=== PATIENT | female | born 1995 | race Caucasian/White ===

== ENCOUNTER 2018-06-03 09:21 | Emergency (ER) | payer BC ==
[~2018-06-03] VITALS: Ht 170.2 cm; Wt 56.2 kg
[2018-06-03 09:25] VITALS: Ht 170.2 cm; Wt 56.2 kg
[2018-06-03 10:24] LABS: BASOPHIL % 0.3 % (0-2); PLATELET COUNT 305 x10^3mcL (130-400); RED CELL DISTRIBUTION WIDTH 13.6 % (11.5-14.5)
[2018-06-03 10:30] LABS: CALCIUM 8.3 mg/dL (8.5-10.1); CARBON DIOXIDE 28.3 mmol/L (21-32); CHLORIDE SERUM 107 mmol/L (98-107); CREATININE SERUM 0.8 mg/dL (0.6-1.0); GFR1 > 60 mL/min; GLUCOSE SERUM 77 mg/dL (74-106); POTASSIUM SERUM 3.7 mmol/L (3.5-5.1); SODIUM SERUM 142 mmol/L (136-145)
[2018-06-03 10:35] LABS: ALBUMIN 3.6 g/dL (3.4-5.0); ALKALINE PHOSPHATASE 75 U/L (46-116); ALT/SGPT 26 U/L (14-59); AST/SGOT 17 U/L (15-37); BILIRUBIN TOTAL 0.31 mg/dL (0.20-1.00); TOTAL PROTEIN, SERUM 7.2 g/dL (6.4-8.2)
[2018-06-03 11:20] VITALS: BP 113/79
== END 2018-06-03 11:20 | disposition home or self-care (01) ==
LOC: ED 09:21
PROVIDERS: Emergency Medicine
DX: M62.830 Muscle spasm of back (principal); Z86.2 Personal history of diseases of the blood and blood-forming organs and certain disorders involving the immune mechanism; Z87.442 Personal history of urinary calculi
CPT/HCPCS: J1885; J7030

== ENCOUNTER 2019-04-11 19:52 | Emergency (ER) | payer BC ==
[~2019-04-11] VITALS: Ht 170.2 cm; Wt 54.5 kg
[2019-04-11 20:08] VITALS: Ht 170.2 cm; Wt 54.5 kg
[2019-04-11 21:21] VITALS: BP 103/64
== END 2019-04-11 21:21 | disposition home or self-care (01) ==
LOC: ED 19:52
DX: S90.862A Insect bite (nonvenomous), left foot, initial encounter (principal); Z87.442 Personal history of urinary calculi; W57.XXXA Bitten or stung by nonvenomous insect and other nonvenomous arthropods, initial encounter; Y93.89 Activity, other specified; Y92.89 Other specified places as the place of occurrence of the external cause; Y99.8 Other external cause status

== ENCOUNTER 2019-05-14 16:19 | Emergency (ER) | payer BC ==
[~2019-05-14] VITALS: Ht 170.2 cm; Wt 53.1 kg
[2019-05-14 16:27] VITALS: Ht 170.2 cm; Wt 53.1 kg
[2019-05-14 18:11] VITALS: BP 136/74
== END 2019-05-14 18:11 | disposition home or self-care (01) ==
LOC: ED 16:19
DX: J40 Bronchitis, not specified as acute or chronic (principal); R11.10 Vomiting, unspecified

== ENCOUNTER 2019-05-17 20:28 | Emergency (ER) | payer BC ==
[~2019-05-17] VITALS: Ht 160 cm; Wt 52.6 kg
[2019-05-17 21:35] LABS: BASOPHIL % 0.9 % (0-2); PLATELET COUNT 289 x10^3mcL (130-400)
[2019-05-17 21:36] LABS: RED CELL DISTRIBUTION WIDTH 15.8 % (11.5-14.5)
[2019-05-17 21:45] LABS: CALCIUM 8.6 mg/dL (8.5-10.1); CHLORIDE SERUM 106 mmol/L (98-107); CREATININE SERUM 1.1 mg/dL (0.6-1.0); GFR1 > 60 mL/min; GLUCOSE SERUM 89 mg/dL (74-106); POTASSIUM SERUM 3.4 mmol/L (3.5-5.1); SODIUM SERUM 143 mmol/L (136-145)
[2019-05-17 21:49] LABS: ALBUMIN 3.7 g/dL (3.4-5.0); ALKALINE PHOSPHATASE 80 U/L (46-116); ALT/SGPT 15 U/L (14-59); AST/SGOT 11 U/L (15-37); BILIRUBIN TOTAL 0.3 mg/dL (0.20-1.00); HDL CHOLESTEROL 37 mg/dL (40-60); TOTAL PROTEIN, SERUM 6.9 g/dL (6.4-8.2)
[2019-05-17 21:56] LABS: CHOLESTEROL 113 mg/dL (<200)
[2019-05-17 23:11] VITALS: BP 109/77
== END 2019-05-17 23:11 | disposition home or self-care (01) ==
LOC: ED 20:28
PROVIDERS: Emergency Medicine
DX: R55 Syncope and collapse (principal); E87.6 Hypokalemia; R05 Cough; D64.9 Anemia, unspecified; Z87.442 Personal history of urinary calculi
CPT/HCPCS: J7030; Q0092

== ENCOUNTER 2019-09-04 21:46 | Emergency (ER) | payer BC ==
[~2019-09-04] VITALS: Ht 170.2 cm; Wt 56.7 kg
[2019-09-04 21:49] VITALS: Ht 170.2 cm; Wt 56.7 kg
[2019-09-05 00:16] LABS: BASOPHIL % 0.5 % (0-2); PLATELET COUNT 344 x10^3mcL (130-400); RED CELL DISTRIBUTION WIDTH 16.1 % (11.5-14.5)
[2019-09-05 00:48] LABS: CARBON DIOXIDE 28.2 mmol/L (21-32); CHLORIDE SERUM 104 mmol/L (98-107); GFR1 > 60 mL/min; GLUCOSE SERUM 93 mg/dL (74-106); POTASSIUM SERUM 4.1 mmol/L (3.5-5.1); SODIUM SERUM 140 mmol/L (136-145)
[2019-09-05 00:53] LABS: ALBUMIN 4.3 g/dL (3.4-5.0); ALKALINE PHOSPHATASE 77 U/L (46-116); ALT/SGPT 41 U/L (14-59); AST/SGOT 75 U/L (15-37); BILIRUBIN TOTAL 0.2 mg/dL (0.20-1.00); LIPASE 375 IU/L (73-393)
[2019-09-05 01:01] LABS: TOTAL PROTEIN, SERUM 8.4 g/dL (6.4-8.2)
[2019-09-05 06:47] VITALS: BP 116/65
== END 2019-09-05 06:47 | disposition home or self-care (01) ==
LOC: ED 21:46
PROVIDERS: Emergency Medicine
DX: G44.209 Tension-type headache, unspecified, not intractable (principal); Z87.442 Personal history of urinary calculi; K29.70 Gastritis, unspecified, without bleeding
CPT/HCPCS: 36415; J1200; J1885; J2765; Q0162